=== PATIENT | male | born 1960 | race American Indian/Alaskan Native ===

== ENCOUNTER 2022-08-11 11:00 | Inpatient (IN) | payer OTHER ==
[2022-08-11 11:13] VITALS: BMI 27.3
[2022-08-11 12:38] LABS: BASO % 1.1 % (0-2.0); EOS % 4.1 % (0-4.5); HEMOGLOBIN 12.3 GM/dL (11.7-16.9); LYMPH % 20.8 % (8-40); MCH 25.8 pg (25.7-33.7); MCHC 32.3 g/dl (32.0-35.9); MEAN CELL VOLUME 80.1 fl (80-96); MEAN PLT VOLUME 7.6 fl (7.5-11.1); MONO % 9.2 % (3.8-10.2); NEUT % 64.8 % (42.8-82.8); PLATELET COUNT 401 10^3/uL (134-434); RBC 4.75 M/mm3 (4.00-5.60); RDW 14.3 % (11.9-15.9); WHITE BLOOD COUNT 12.1 K/mm3 (4.0-10.0)
[2022-08-11 12:52] LABS: EPI CELLS 5 /uL (0-25.1); HYALINE CASTS 0 /uL (0-3.1); PH,URINE 7.5 (5.0-8.0); URINE APPEARANCE CLEAR; URINE BILIRUBIN NEGATIVE (NEGATIVE); URINE COLOR DK YELLOW; URINE GLUCOSE (UA) NEGATIVE (NEGATIVE); URINE KETONE NEGATIVE (NEGATIVE); URINE LEUK ESTERASE NEGATIVE (NEGATIVE); URINE NITRITE POSITIVE (NEGATIVE); URINE PROTEIN NEGATIVE (NEGATIVE); URINE RBC 6 /uL (0-23.9); URINE WBC 12 /uL (0-25.8)
[2022-08-11 13:06] LABS: CALCIUM 8.6 mg/dL (8.5-10.1)
[2022-08-11 13:07] LABS: ALBUMIN 2.8 g/dl (3.4-5.0); BLOOD UREA NITROGEN 8.6 mg/dL (7-18)
[2022-08-11 13:11] LABS: URINE BACTERIA 44.7 /uL (0-1359)
[2022-08-11 13:11] LABS: BILIRUBIN,TOTAL 0.5 mg/dL (0.2-1)
[2022-08-11 13:12] LABS: TOT PROT 6.3 g/dl (6.4-8.2)
[2022-08-11 13:15] LABS: N-TERMINAL BNP 64.3 pg/ml (5-125)
[2022-08-11] MEDS ORDERED: LORazepam 2 MG TABLET PO ONE (16:20)
[2022-08-11] MEDS ORDERED: PIPERACILLIN/TAZOB 3.375 GM 3.375 GM in DEXTROSE 5%-WATER - 50 ML IVPB ONE (16:21)
[2022-08-11] MEDS ORDERED: VANCOMYCIN 1 GM in D5W (PRE-DOCKED) 1,000 MG/250 ML (RESTRICTED TO ID ONLY IVPB ONE (16:22)
[2022-08-11] MEDS ORDERED: HALOPERIDOL 5 MG TABLET PO ONE (16:52)
[2022-08-11] MEDS ORDERED: LORazepam 1 MG TABLET ONE (17:13)
[2022-08-11] MEDS ORDERED: PIPERACILLIN/TAZOB 3.375 GM 3.375 GM/50 ML BAG IVPB ONE (17:14)
[2022-08-11] MEDS ORDERED: VANCOMYCIN/WATER FOR INJ (PEG) 1,000 MG/200 ML BAG IVPB ONE (19:09)
[2022-08-11] MEDS ORDERED: FUROSEMIDE 40 MG/4 ML INJECTABLE VIAL IVPUSH ONE (22:12)
[2022-08-12] MEDS: PIPERACILLIN/TAZOB 3.375 GM 3.375 GM in DEXTROSE 5%-WATER - 50 ML IVPB SCH ×4 (02:14→17:07)
[2022-08-12] MEDS: LORazepam 1 MG TABLET PO SCH ×3 (06:08→23:06)
[2022-08-12] MEDS ORDERED: ENOXAPARIN NA (PORCINE) 40 MG/0.4 ML DISP.SYRIN SQ SCH (10:00)
[2022-08-12 10:08] LABS: HEMATOCRIT 37.8 % (35.4-49); HEMOGLOBIN 12.2 GM/dL (11.7-16.9); MCH 25.8 pg (25.7-33.7); MCHC 32.3 g/dl (32.0-35.9); MEAN CELL VOLUME 79.8 fl (80-96); PLATELET COUNT 411 10^3/uL (134-434); RBC 4.73 M/mm3 (4.00-5.60); RDW 14.7 % (11.9-15.9); WHITE BLOOD COUNT 11.9 K/mm3 (4.0-10.0)
[2022-08-12 10:25] LABS: POTASSIUM 4.1 mmol/L (3.5-5.1)
[2022-08-12 10:32] LABS: CALCIUM 8.6 mg/dL (8.5-10.1)
[2022-08-12 10:33] LABS: BLOOD UREA NITROGEN 9.2 mg/dL (7-18); MAGNESIUM 1.7 mg/dL (1.8-2.4)
[2022-08-12 10:36] LABS: PHOSPHOROUS 3.8 mg/dL (2.5-4.9)
[2022-08-12 10:37] LABS: BILIRUBIN,TOTAL 0.5 mg/dL (0.2-1)
[2022-08-12] MEDS: BENZTROPINE MESYLATE 1 MG TABLET PO SCH ×2 (11:05→23:07)
[2022-08-12] MEDS: HALOPERIDOL 5 MG TABLET PO SCH ×2 (11:05→23:07)
[2022-08-12] MEDS: NAPROXEN 500 MG TABLET PO SCH ×2 (11:06→23:07)
[2022-08-12] MEDS ORDERED: methylPREDNISolone ACET (DEPO) 40 MG/1 ML VIAL IM ONE (12:15)
[2022-08-12] MEDS ORDERED: LIDOCAINE HCL 1%, 10 MG/ML (50 mL VIAL) SQ ONE (12:16)
[2022-08-12 13:06] LABS: HIV INTERPRETATION NEGATIVE (NEGATIVE)
[2022-08-12] MEDS ORDERED: traZODone HCL 50 MG TABLET (FP) PO SCH (22:00)
[2022-08-13] MEDS: PIPERACILLIN/TAZOB 3.375 GM 3.375 GM in DEXTROSE 5%-WATER - 50 ML IVPB SCH ×3 (01:43→21:40)
[2022-08-13] MEDS: LORazepam 1 MG TABLET PO SCH ×3 (06:03→21:36)
[2022-08-13] MEDS ORDERED: TAMSULOSIN HCL 0.4 MG CAP PO SCH (08:30)
[2022-08-13] MEDS ORDERED: MIDAZOLAM HCL 2 MG/2 ML SINGLE DOSE VIAL ONE (09:53)
[2022-08-13] MEDS ORDERED: ENOXAPARIN NA (PORCINE) 40 MG/0.4 ML DISP.SYRIN SQ SCH (10:00)
[2022-08-13] MEDS ORDERED: ceFAZolin SODIUM 1 GM VIAL IVPB ONE (10:20)
[2022-08-13] MEDS ORDERED: LIDOCAINE HCL 1%, 10 MG/ML (50 mL VIAL) INF ONE ×2 (10:58)
[2022-08-13] MEDS ORDERED: BUPIVACAINE HCL/PF 0.5% (5MG/ML) 10 ML VIAL IJ ONE ×2 (10:58)
[2022-08-13] MEDS ORDERED: ONDANSETRON 4 MG/2 ML VIAL IVPUSH PRN ×2 (11:29→11:54)
[2022-08-13] MEDS ORDERED: LACTATED RINGERS SOLUTION 1,000 ML IV SCH (11:30)
[2022-08-13] MEDS ORDERED: LIDOCAINE HCL 2% JELLY 10 ML CARTRIDGE UR ONE (11:47)
[2022-08-13] MEDS ORDERED: oxyCODONE HCL 5 MG TABLET PO PRN (11:54)
[2022-08-13] MEDS ORDERED: MAGNESIUM OXIDE 400 MG TABLET (FP) PO ONE ×2 (12:00→15:45)
[2022-08-13] MEDS: LACTATED RINGERS SOLUTION 1,000 ML IV SCH (12:25)
[2022-08-13] MEDS: BENZTROPINE MESYLATE 1 MG TABLET PO SCH ×2 (14:09→21:38)
[2022-08-13] MEDS: HALOPERIDOL 5 MG TABLET PO SCH ×2 (14:10→21:37)
[2022-08-13] MEDS: NAPROXEN 500 MG TABLET PO SCH (14:11)
[2022-08-13] MEDS: ACETAMINOPHEN 1000 MG/100 ML BAG IVPB SCH ×2 (18:01→23:54)
[2022-08-13 18:07] LABS: CYCLIC CITRULLINE PEPTIDE AB 5 units (0-19)
[2022-08-13] MEDS: traZODone HCL 50 MG TABLET (FP) PO SCH (21:35)
[2022-08-13] MEDS: TAMSULOSIN HCL 0.4 MG CAP PO SCH (21:35)
[2022-08-14] MEDS: PIPERACILLIN/TAZOB 3.375 GM 3.375 GM in DEXTROSE 5%-WATER - 50 ML IVPB SCH ×4 (02:57→17:19)
[2022-08-14] MEDS: ACETAMINOPHEN 1000 MG/100 ML BAG IVPB SCH (06:27)
[2022-08-14] MEDS: LORazepam 1 MG TABLET PO SCH ×3 (06:28→21:49)
[2022-08-14] MEDS: LACTATED RINGERS SOLUTION 1,000 ML IV SCH ×2 (06:59→14:37)
[2022-08-14 09:30] LABS: BASO % 0.9 % (0-2.0); EOS % 5.7 % (0-4.5); HEMATOCRIT 36.3 % (35.4-49); HEMOGLOBIN 12.2 GM/dL (11.7-16.9); LYMPH % 20.2 % (8-40); MCH 26.5 pg (25.7-33.7); MCHC 33.7 g/dl (32.0-35.9); MEAN CELL VOLUME 78.7 fl (80-96); MEAN PLT VOLUME 7.3 fl (7.5-11.1); MONO % 9.9 % (3.8-10.2); NEUT % 63.3 % (42.8-82.8); PLATELET COUNT 383 10^3/uL (134-434); RBC 4.62 M/mm3 (4.00-5.60); WHITE BLOOD COUNT 10.8 K/mm3 (4.0-10.0)
[2022-08-14 09:45] LABS: POTASSIUM 4.5 mmol/L (3.5-5.1)
[2022-08-14 09:49] LABS: CALCIUM 8.3 mg/dL (8.5-10.1)
[2022-08-14 09:50] LABS: ALBUMIN 2.7 g/dl (3.4-5.0)
[2022-08-14 09:53] LABS: CREATININE 1.1 mg/dL (0.55-1.3)
[2022-08-14 09:55] LABS: BILIRUBIN,TOTAL 0.4 mg/dL (0.2-1); TOT PROT 5.5 g/dl (6.4-8.2)
[2022-08-14] MEDS: HALOPERIDOL 5 MG TABLET PO SCH ×2 (10:19→21:54)
[2022-08-14] MEDS: ENOXAPARIN NA (PORCINE) 40 MG/0.4 ML DISP.SYRIN SQ SCH (10:19)
[2022-08-14] MEDS: BENZTROPINE MESYLATE 1 MG TABLET PO SCH ×2 (10:20→21:52)
[2022-08-14] MEDS: TAMSULOSIN HCL 0.4 MG CAP PO SCH ×2 (10:20→21:53)
[2022-08-14 10:32] LABS: MAGNESIUM 2.1 mg/dL (1.8-2.4)
[2022-08-14] MEDS: PANTOPRAZOLE 40 MG TABLET PO SCH (15:30)
[2022-08-14] MEDS: ACETAMINOPHEN 325 MG TABLET (FP) PO PRN (17:18)
[2022-08-14] MEDS: traZODone HCL 50 MG TABLET (FP) PO SCH (21:53)
[2022-08-15] MEDS: AMPICILLIN NA/SULBACTAM NA 3 GM in SODIUM CHLORIDE 100 ML IVPB SCH ×3 (01:52→17:24)
[2022-08-15] MEDS: LACTATED RINGERS SOLUTION 1,000 ML IV SCH ×2 (01:53→11:44)
[2022-08-15] MEDS: LORazepam 1 MG TABLET PO SCH ×3 (05:28→23:01)
[2022-08-15 07:34] LABS: BASO % 0.8 % (0-2.0); EOS % 4.4 % (0-4.5); HEMATOCRIT 36.5 % (35.4-49); HEMOGLOBIN 11.6 GM/dL (11.7-16.9); LYMPH % 14.7 % (8-40); MCH 25.5 pg (25.7-33.7); MCHC 31.9 g/dl (32.0-35.9); MEAN CELL VOLUME 79.9 fl (80-96); MEAN PLT VOLUME 7.7 fl (7.5-11.1); MONO % 9.3 % (3.8-10.2); NEUT % 70.8 % (42.8-82.8); PLATELET COUNT 381 10^3/uL (134-434); RBC 4.57 M/mm3 (4.00-5.60); RDW 14.5 % (11.9-15.9)
[2022-08-15 07:47] LABS: POTASSIUM 4.3 mmol/L (3.5-5.1)
[2022-08-15 07:49] LABS: CALCIUM 8.3 mg/dL (8.5-10.1)
[2022-08-15 07:50] LABS: ALBUMIN 2.5 g/dl (3.4-5.0); BLOOD UREA NITROGEN 9.3 mg/dL (7-18); MAGNESIUM 1.8 mg/dL (1.8-2.4)
[2022-08-15 07:53] LABS: CREATININE 0.9 mg/dL (0.55-1.3)
[2022-08-15 07:55] LABS: BILIRUBIN,TOTAL 0.3 mg/dL (0.2-1); TOT PROT 5.4 g/dl (6.4-8.2)
[2022-08-15] MEDS: HALOPERIDOL 5 MG TABLET PO SCH ×2 (10:06→23:04)
[2022-08-15] MEDS: TAMSULOSIN HCL 0.4 MG CAP PO SCH ×2 (10:06→23:02)
[2022-08-15] MEDS: BENZTROPINE MESYLATE 1 MG TABLET PO SCH ×2 (10:07→23:03)
[2022-08-15] MEDS: ENOXAPARIN NA (PORCINE) 40 MG/0.4 ML DISP.SYRIN SQ SCH (10:07)
[2022-08-15] MEDS: PANTOPRAZOLE 40 MG TABLET PO SCH (10:08)
[2022-08-15] MEDS: LOPERAMIDE HCL 2 MG CAPSULE PO PRN (10:28)
[2022-08-15] MEDS: LACTOBACILLUS ACIDOPHILUS 1 TABLET PO SCH (13:47)
[2022-08-15] MEDS: traZODone HCL 50 MG TABLET (FP) PO SCH (23:01)
[2022-08-16] MEDS: AMPICILLIN NA/SULBACTAM NA 3 GM in SODIUM CHLORIDE 100 ML IVPB SCH ×3 (02:22→17:34)
[2022-08-16] MEDS: LORazepam 1 MG TABLET PO SCH ×3 (07:05→22:28)
[2022-08-16 08:44] LABS: EOS % 4.7 % (0-4.5); HEMATOCRIT 37.2 % (35.4-49); LYMPH % 22.6 % (8-40); MCH 25.9 pg (25.7-33.7); MCHC 32.3 g/dl (32.0-35.9); MEAN CELL VOLUME 80.2 fl (80-96); MEAN PLT VOLUME 7.6 fl (7.5-11.1); MONO % 8.5 % (3.8-10.2); NEUT % 63.2 % (42.8-82.8); PLATELET COUNT 399 10^3/uL (134-434); RBC 4.64 M/mm3 (4.00-5.60); RDW 14.6 % (11.9-15.9); WHITE BLOOD COUNT 12.7 K/mm3 (4.0-10.0)
[2022-08-16 09:07] LABS: POTASSIUM 4.7 mmol/L (3.5-5.1)
[2022-08-16 09:10] LABS: BLOOD UREA NITROGEN 9.5 mg/dL (7-18)
[2022-08-16 09:11] LABS: ALBUMIN 2.8 g/dl (3.4-5.0); MAGNESIUM 1.7 mg/dL (1.8-2.4)
[2022-08-16 09:13] LABS: CREATININE 0.8 mg/dL (0.55-1.3)
[2022-08-16 09:14] LABS: BILIRUBIN,TOTAL 0.7 mg/dL (0.2-1)
[2022-08-16 09:16] LABS: TOT PROT 5.9 g/dl (6.4-8.2)
[2022-08-16] MEDS: PANTOPRAZOLE 40 MG TABLET PO SCH (09:17)
[2022-08-16] MEDS: TAMSULOSIN HCL 0.4 MG CAP PO SCH ×2 (09:18→22:29)
[2022-08-16] MEDS: HALOPERIDOL 5 MG TABLET PO SCH ×2 (09:18→22:29)
[2022-08-16] MEDS: ENOXAPARIN NA (PORCINE) 40 MG/0.4 ML DISP.SYRIN SQ SCH (09:19)
[2022-08-16] MEDS: BENZTROPINE MESYLATE 1 MG TABLET PO SCH ×2 (09:19→22:29)
[2022-08-16] MEDS: LACTATED RINGERS SOLUTION 1,000 ML IV SCH (09:23)
[2022-08-16] MEDS: LACTOBACILLUS ACIDOPHILUS 1 TABLET PO SCH (09:48)
[2022-08-16] MEDS ORDERED: MAGNESIUM OXIDE 400 MG TABLET (FP) PO ONE (10:38)
[2022-08-16] MEDS: ACETAMINOPHEN 325 MG TABLET (FP) PO PRN (13:10)
[2022-08-16] MEDS ORDERED: INSULIN SLIDING SCALE (NOVOLOG) 1 VIAL SQ SCH (17:45)
[2022-08-16] MEDS: traZODone HCL 50 MG TABLET (FP) PO SCH (22:29)
[2022-08-16] MEDS ORDERED: INSULIN (NOVOLOG) ASPART 100 UNITS/ML 10ML VIAL ONE (22:35)
[2022-08-16] MEDS: INSULIN SLIDING SCALE (NOVOLOG) 1 VIAL SQ SCH (22:37)
[2022-08-17] MEDS ORDERED: FAMOTIDINE 20 MG/50 ML IVPB 20 MG/50 ML MG IVPB ONE (01:14)
[2022-08-17] MEDS: AMPICILLIN NA/SULBACTAM NA 3 GM in SODIUM CHLORIDE 100 ML IVPB SCH ×3 (02:30→17:29)
[2022-08-17] MEDS: LACTATED RINGERS SOLUTION 1,000 ML IV SCH ×2 (06:57→12:00)
[2022-08-17] MEDS: LORazepam 1 MG TABLET PO SCH ×3 (06:58→22:03)
[2022-08-17] MEDS: INSULIN SLIDING SCALE (NOVOLOG) 1 VIAL SQ SCH ×4 (06:59→22:16)
[2022-08-17 09:08] LABS: BASO % 0.6 % (0-2.0); EOS % 5.8 % (0-4.5); HEMOGLOBIN 11.6 GM/dL (11.7-16.9); LYMPH % 15.9 % (8-40); MCH 26.1 pg (25.7-33.7); MCHC 33.3 g/dl (32.0-35.9); MEAN CELL VOLUME 78.4 fl (80-96); MEAN PLT VOLUME 7.4 fl (7.5-11.1); MONO % 8.7 % (3.8-10.2); PLATELET COUNT 383 10^3/uL (134-434); RBC 4.46 M/mm3 (4.00-5.60); RDW 14.6 % (11.9-15.9); WHITE BLOOD COUNT 11.6 K/mm3 (4.0-10.0)
[2022-08-17 09:18] LABS: POTASSIUM 4.4 mmol/L (3.5-5.1)
[2022-08-17 09:25] LABS: CALCIUM 8.5 mg/dL (8.5-10.1)
[2022-08-17 09:26] LABS: ALBUMIN 2.4 g/dl (3.4-5.0); BLOOD UREA NITROGEN 9.8 mg/dL (7-18); MAGNESIUM 1.7 mg/dL (1.8-2.4)
[2022-08-17 09:29] LABS: CREATININE 0.8 mg/dL (0.55-1.3)
[2022-08-17 09:30] LABS: BILIRUBIN,TOTAL 0.4 mg/dL (0.2-1)
[2022-08-17 09:32] LABS: TOT PROT 5.4 g/dl (6.4-8.2)
[2022-08-17] MEDS: LACTOBACILLUS ACIDOPHILUS 1 TABLET PO SCH (10:16)
[2022-08-17] MEDS: ENOXAPARIN NA (PORCINE) 40 MG/0.4 ML DISP.SYRIN SQ SCH (10:16)
[2022-08-17] MEDS: TAMSULOSIN HCL 0.4 MG CAP PO SCH ×2 (10:16→22:04)
[2022-08-17] MEDS: HALOPERIDOL 5 MG TABLET PO SCH ×2 (10:17→22:06)
[2022-08-17] MEDS: BENZTROPINE MESYLATE 1 MG TABLET PO SCH ×2 (10:17→22:49)
[2022-08-17] MEDS: PANTOPRAZOLE 40 MG TABLET PO SCH (10:30)
[2022-08-17] MEDS ORDERED: INSULIN (NOVOLOG) ASPART 100 UNITS/ML 10ML VIAL ONE ×2 (11:33→16:37)
[2022-08-17 16:09] LABS: ATYPICAL pANCA <1:20 titer (Neg:<1:20); C-ANCA <1:20 titer (Neg:<1:20)
[2022-08-17] MEDS: traZODone HCL 50 MG TABLET (FP) PO SCH (22:04)
[2022-08-18] MEDS: AMPICILLIN NA/SULBACTAM NA 3 GM in SODIUM CHLORIDE 100 ML IVPB SCH ×3 (03:23→17:23)
[2022-08-18] MEDS: LORazepam 1 MG TABLET PO SCH ×3 (06:07→21:18)
[2022-08-18] MEDS: INSULIN SLIDING SCALE (NOVOLOG) 1 VIAL SQ SCH ×4 (06:08→21:35)
[2022-08-18] MEDS: TAMSULOSIN HCL 0.4 MG CAP PO SCH ×2 (08:00→21:18)
[2022-08-18] MEDS ORDERED: INSULIN (NOVOLOG) ASPART 100 UNITS/ML 10ML VIAL ONE ×4 (08:02→21:27)
[2022-08-18 09:32] LABS: BASO % 0.9 % (0-2.0); HEMATOCRIT 36.1 % (35.4-49); HEMOGLOBIN 11.5 GM/dL (11.7-16.9); LYMPH % 19.7 % (8-40); MCH 25.5 pg (25.7-33.7); MCHC 31.9 g/dl (32.0-35.9); MEAN CELL VOLUME 79.9 fl (80-96); MEAN PLT VOLUME 7.8 fl (7.5-11.1); NEUT % 66.4 % (42.8-82.8); PLATELET COUNT 415 10^3/uL (134-434); RBC 4.52 M/mm3 (4.00-5.60); RDW 14.4 % (11.9-15.9); WHITE BLOOD COUNT 11.2 K/mm3 (4.0-10.0)
[2022-08-18 09:52] LABS: POTASSIUM 4.3 mmol/L (3.5-5.1)
[2022-08-18 10:00] LABS: CALCIUM 8.6 mg/dL (8.5-10.1)
[2022-08-18 10:01] LABS: ALBUMIN 2.6 g/dl (3.4-5.0); BLOOD UREA NITROGEN 9.2 mg/dL (7-18); MAGNESIUM 1.7 mg/dL (1.8-2.4)
[2022-08-18 10:04] LABS: CREATININE 0.7 mg/dL (0.55-1.3)
[2022-08-18 10:05] LABS: BILIRUBIN,TOTAL 0.4 mg/dL (0.2-1); TOT PROT 5.8 g/dl (6.4-8.2)
[2022-08-18] MEDS: PANTOPRAZOLE 40 MG TABLET PO SCH (10:05)
[2022-08-18] MEDS: LACTOBACILLUS ACIDOPHILUS 1 TABLET PO SCH (10:05)
[2022-08-18] MEDS: HALOPERIDOL 5 MG TABLET PO SCH ×2 (10:05→21:18)
[2022-08-18] MEDS: BENZTROPINE MESYLATE 1 MG TABLET PO SCH ×2 (10:06→21:18)
[2022-08-18] MEDS: ENOXAPARIN NA (PORCINE) 40 MG/0.4 ML DISP.SYRIN SQ SCH (10:06)
[2022-08-18] MEDS ORDERED: MAGNESIUM OXIDE 400 MG TABLET (FP) PO ONE (11:10)
[2022-08-18] MEDS: metoPROLOL SUCCINATE 25 MG TAB.SR.24H (FP) PO SCH (11:43)
[2022-08-18] MEDS: LACTATED RINGERS SOLUTION 1,000 ML IV SCH (15:43)
[2022-08-18] MEDS: traZODone HCL 50 MG TABLET (FP) PO SCH (21:18)
[2022-08-19] MEDS: AMPICILLIN NA/SULBACTAM NA 3 GM in SODIUM CHLORIDE 100 ML IVPB SCH ×3 (01:21→17:22)
[2022-08-19] MEDS: LORazepam 1 MG TABLET PO SCH ×3 (05:22→21:37)
[2022-08-19] MEDS: INSULIN SLIDING SCALE (NOVOLOG) 1 VIAL SQ SCH ×4 (06:14→22:56)
[2022-08-19 08:54] LABS: BASO % 0.8 % (0-2.0); EOS % 4.4 % (0-4.5); HEMATOCRIT 36.2 % (35.4-49); HEMOGLOBIN 11.4 GM/dL (11.7-16.9); LYMPH % 20.5 % (8-40); MCH 25.2 pg (25.7-33.7); MCHC 31.6 g/dl (32.0-35.9); MEAN CELL VOLUME 79.7 fl (80-96); MEAN PLT VOLUME 7.8 fl (7.5-11.1); MONO % 9.9 % (3.8-10.2); NEUT % 64.4 % (42.8-82.8); PLATELET COUNT 421 10^3/uL (134-434); RBC 4.54 M/mm3 (4.00-5.60); RDW 14.3 % (11.9-15.9); WHITE BLOOD COUNT 11.9 K/mm3 (4.0-10.0)
[2022-08-19 09:12] LABS: POTASSIUM 4.4 mmol/L (3.5-5.1)
[2022-08-19 09:15] LABS: BLOOD UREA NITROGEN 10.9 mg/dL (7-18); CALCIUM 8.9 mg/dL (8.5-10.1); MAGNESIUM 1.9 mg/dL (1.8-2.4)
[2022-08-19 09:17] LABS: ALBUMIN 2.7 g/dl (3.4-5.0)
[2022-08-19 09:18] LABS: CREATININE 0.8 mg/dL (0.55-1.3)
[2022-08-19 09:20] LABS: BILIRUBIN,TOTAL 0.5 mg/dL (0.2-1); TOT PROT 5.8 g/dl (6.4-8.2)
[2022-08-19] MEDS: metoPROLOL SUCCINATE 25 MG TAB.SR.24H (FP) PO SCH (09:28)
[2022-08-19] MEDS: PANTOPRAZOLE 40 MG TABLET PO SCH (09:28)
[2022-08-19] MEDS: LACTOBACILLUS ACIDOPHILUS 1 TABLET PO SCH (09:28)
[2022-08-19] MEDS: TAMSULOSIN HCL 0.4 MG CAP PO SCH ×2 (09:28→21:37)
[2022-08-19] MEDS: ENOXAPARIN NA (PORCINE) 40 MG/0.4 ML DISP.SYRIN SQ SCH (09:29)
[2022-08-19] MEDS: HALOPERIDOL 5 MG TABLET PO SCH ×2 (09:29→22:49)
[2022-08-19] MEDS: BENZTROPINE MESYLATE 1 MG TABLET PO SCH ×2 (09:29→21:37)
[2022-08-19] MEDS ORDERED: INSULIN (NOVOLOG) ASPART 100 UNITS/ML 10ML VIAL ONE (11:43)
[2022-08-19] MEDS: LACTATED RINGERS SOLUTION 1,000 ML IV SCH ×2 (13:15→17:22)
[2022-08-19] MEDS: ACETAMINOPHEN 325 MG TABLET (FP) PO PRN (17:23)
[2022-08-19] MEDS: traZODone HCL 50 MG TABLET (FP) PO SCH (21:37)
[2022-08-20] MEDS: AMPICILLIN NA/SULBACTAM NA 3 GM in SODIUM CHLORIDE 100 ML IVPB SCH ×3 (01:32→18:27)
[2022-08-20] MEDS: LORazepam 1 MG TABLET PO SCH ×3 (05:32→21:32)
[2022-08-20] MEDS ORDERED: INSULIN (NOVOLOG) ASPART 100 UNITS/ML 10ML VIAL ONE ×2 (06:30→22:19)
[2022-08-20] MEDS: INSULIN SLIDING SCALE (NOVOLOG) 1 VIAL SQ SCH ×5 (06:44→22:20)
[2022-08-20 08:44] LABS: EOS % 5.1 % (0-4.5); HEMATOCRIT 35.6 % (35.4-49); HEMOGLOBIN 11.4 GM/dL (11.7-16.9); LYMPH % 15.9 % (8-40); MCH 25.6 pg (25.7-33.7); MEAN CELL VOLUME 80.1 fl (80-96); MONO % 9.8 % (3.8-10.2); NEUT % 68.2 % (42.8-82.8); PLATELET COUNT 419 10^3/uL (134-434); RBC 4.44 M/mm3 (4.00-5.60); RDW 14.3 % (11.9-15.9); WHITE BLOOD COUNT 11.3 K/mm3 (4.0-10.0)
[2022-08-20 08:58] LABS: POTASSIUM 4.4 mmol/L (3.5-5.1)
[2022-08-20 09:01] LABS: ALBUMIN 2.5 g/dl (3.4-5.0); BLOOD UREA NITROGEN 10.6 mg/dL (7-18); CALCIUM 8.5 mg/dL (8.5-10.1); MAGNESIUM 1.8 mg/dL (1.8-2.4)
[2022-08-20 09:04] LABS: CREATININE 0.7 mg/dL (0.55-1.3)
[2022-08-20 09:06] LABS: BILIRUBIN,TOTAL 0.3 mg/dL (0.2-1); TOT PROT 5.6 g/dl (6.4-8.2)
[2022-08-20] MEDS: PANTOPRAZOLE 40 MG TABLET PO SCH (09:20)
[2022-08-20] MEDS: LACTOBACILLUS ACIDOPHILUS 1 TABLET PO SCH (09:20)
[2022-08-20] MEDS: metoPROLOL SUCCINATE 25 MG TAB.SR.24H (FP) PO SCH (09:20)
[2022-08-20] MEDS: TAMSULOSIN HCL 0.4 MG CAP PO SCH ×2 (09:21→21:32)
[2022-08-20] MEDS: BENZTROPINE MESYLATE 1 MG TABLET PO SCH ×2 (09:22→21:33)
[2022-08-20] MEDS: HALOPERIDOL 5 MG TABLET PO SCH ×2 (09:22→21:33)
[2022-08-20] MEDS: ENOXAPARIN NA (PORCINE) 40 MG/0.4 ML DISP.SYRIN SQ SCH (09:23)
[2022-08-20] MEDS: ACETAMINOPHEN 325 MG TABLET (FP) PO PRN (10:24)
[2022-08-20] MEDS: traZODone HCL 50 MG TABLET (FP) PO SCH (21:32)
[2022-08-21] MEDS: AMPICILLIN NA/SULBACTAM NA 3 GM in SODIUM CHLORIDE 100 ML IVPB SCH ×2 (01:26→09:10)
[2022-08-21] MEDS: LORazepam 1 MG TABLET PO SCH ×3 (06:37→22:25)
[2022-08-21] MEDS: INSULIN SLIDING SCALE (NOVOLOG) 1 VIAL SQ SCH ×4 (06:48→22:24)
[2022-08-21 08:33] LABS: POTASSIUM 4.8 mmol/L (3.5-5.1)
[2022-08-21 08:37] LABS: ALBUMIN 2.7 g/dl (3.4-5.0); BLOOD UREA NITROGEN 10.4 mg/dL (7-18); CALCIUM 8.8 mg/dL (8.5-10.1)
[2022-08-21 08:40] LABS: CREATININE 0.8 mg/dL (0.55-1.3)
[2022-08-21 08:41] LABS: BILIRUBIN,TOTAL 0.7 mg/dL (0.2-1)
[2022-08-21 08:43] LABS: EOS % 5.4 % (0-4.5); HEMOGLOBIN 11.8 GM/dL (11.7-16.9); LYMPH % 20.7 % (8-40); MCH 24.9 pg (25.7-33.7); MCHC 31.8 g/dl (32.0-35.9); MEAN CELL VOLUME 78.1 fl (80-96); MEAN PLT VOLUME 7.8 fl (7.5-11.1); MONO % 8.8 % (3.8-10.2); NEUT % 64.1 % (42.8-82.8); PLATELET COUNT 441 10^3/uL (134-434); RBC 4.74 M/mm3 (4.00-5.60); RDW 14.7 % (11.9-15.9); WHITE BLOOD COUNT 12.6 K/mm3 (4.0-10.0)
[2022-08-21] MEDS: TAMSULOSIN HCL 0.4 MG CAP PO SCH ×2 (08:55→22:26)
[2022-08-21] MEDS: metoPROLOL SUCCINATE 25 MG TAB.SR.24H (FP) PO SCH (09:09)
[2022-08-21] MEDS: ENOXAPARIN NA (PORCINE) 40 MG/0.4 ML DISP.SYRIN SQ SCH (09:09)
[2022-08-21] MEDS: LACTOBACILLUS ACIDOPHILUS 1 TABLET PO SCH (09:09)
[2022-08-21] MEDS: PANTOPRAZOLE 40 MG TABLET PO SCH (09:10)
[2022-08-21] MEDS: HALOPERIDOL 5 MG TABLET PO SCH ×2 (09:13→22:25)
[2022-08-21] MEDS: BENZTROPINE MESYLATE 1 MG TABLET PO SCH ×2 (09:14→22:26)
[2022-08-21] MEDS ORDERED: INSULIN (NOVOLOG) ASPART 100 UNITS/ML 10ML VIAL ONE ×2 (12:02→17:10)
[2022-08-21] MEDS: AMOX TR/POT CLAV 875MG/125MG TABLETS (FP) PO SCH (17:58)
[2022-08-21] MEDS: traZODone HCL 50 MG TABLET (FP) PO SCH (22:26)
[2022-08-22] MEDS: LORazepam 1 MG TABLET PO SCH ×3 (05:57→21:15)
[2022-08-22] MEDS: INSULIN SLIDING SCALE (NOVOLOG) 1 VIAL SQ SCH ×4 (06:04→22:06)
[2022-08-22 08:50] LABS: BASO % 0.8 % (0-2.0); EOS % 4.5 % (0-4.5); HEMATOCRIT 36.8 % (35.4-49); HEMOGLOBIN 11.7 GM/dL (11.7-16.9); LYMPH % 16.8 % (8-40); MCH 24.9 pg (25.7-33.7); MCHC 31.8 g/dl (32.0-35.9); MEAN CELL VOLUME 78.3 fl (80-96); MEAN PLT VOLUME 7.5 fl (7.5-11.1); NEUT % 66.9 % (42.8-82.8); PLATELET COUNT 445 10^3/uL (134-434); RBC 4.69 M/mm3 (4.00-5.60); RDW 14.5 % (11.9-15.9)
[2022-08-22] MEDS: LACTOBACILLUS ACIDOPHILUS 1 TABLET PO SCH (09:14)
[2022-08-22] MEDS: AMOX TR/POT CLAV 875MG/125MG TABLETS (FP) PO SCH ×2 (09:14→16:54)
[2022-08-22] MEDS: PANTOPRAZOLE 40 MG TABLET PO SCH (09:14)
[2022-08-22] MEDS: ENOXAPARIN NA (PORCINE) 40 MG/0.4 ML DISP.SYRIN SQ SCH (09:14)
[2022-08-22] MEDS: metoPROLOL SUCCINATE 25 MG TAB.SR.24H (FP) PO SCH (09:14)
[2022-08-22] MEDS: TAMSULOSIN HCL 0.4 MG CAP PO SCH ×2 (09:14→21:15)
[2022-08-22] MEDS: BENZTROPINE MESYLATE 1 MG TABLET PO SCH ×2 (09:16→21:15)
[2022-08-22] MEDS: HALOPERIDOL 5 MG TABLET PO SCH ×2 (09:16→21:15)
[2022-08-22 09:26] VITALS: RESP 18
[2022-08-22] MEDS: ACETAMINOPHEN 325 MG TABLET (FP) PO PRN (11:41)
[2022-08-22] MEDS: LOPERAMIDE HCL 2 MG CAPSULE PO PRN (18:58)
[2022-08-22] MEDS: traZODone HCL 50 MG TABLET (FP) PO SCH (21:15)
[2022-08-22] MEDS ORDERED: INSULIN (NOVOLOG) ASPART 100 UNITS/ML 10ML VIAL ONE (22:00)
[2022-08-23] MEDS: LORazepam 1 MG TABLET PO SCH ×2 (06:32→14:52)
[2022-08-23] MEDS ORDERED: INSULIN (NOVOLOG) ASPART 100 UNITS/ML 10ML VIAL ONE (06:51)
[2022-08-23] MEDS: INSULIN SLIDING SCALE (NOVOLOG) 1 VIAL SQ SCH ×2 (06:53→12:51)
[2022-08-23] MEDS: ENOXAPARIN NA (PORCINE) 40 MG/0.4 ML DISP.SYRIN SQ SCH (09:14)
[2022-08-23] MEDS: metoPROLOL SUCCINATE 25 MG TAB.SR.24H (FP) PO SCH (09:14)
[2022-08-23] MEDS: AMOX TR/POT CLAV 875MG/125MG TABLETS (FP) PO SCH (09:14)
[2022-08-23] MEDS: TAMSULOSIN HCL 0.4 MG CAP PO SCH (09:14)
[2022-08-23] MEDS: LACTOBACILLUS ACIDOPHILUS 1 TABLET PO SCH (09:14)
[2022-08-23] MEDS: HALOPERIDOL 5 MG TABLET PO SCH (09:15)
[2022-08-23] MEDS: BENZTROPINE MESYLATE 1 MG TABLET PO SCH (09:15)
[2022-08-23] MEDS: PANTOPRAZOLE 40 MG TABLET PO SCH (09:16)
[2022-08-23 15:48] VITALS: BP 130/57; PULSE 114; TEMP 98.7
== END 2022-08-23 16:30 | disposition home or self-care (01) | DRG 681 ==
LOC: JER 11:00 → JERBED 19:27 → J8W 21:55
PROVIDERS: ADMIT Internal Medicine; ATTEND Nurse Practitioner Family
PROC: 0T9B70Z Drainage of Bladder with Drainage Device, Via Natural or Artificial Opening (ICD-10-PCS; 2022-08-13)
PROC: 07BH0ZZ Excision of Right Inguinal Lymphatic, Open Approach (ICD-10-PCS; principal; 2022-08-13 09:30)
DX: C83.15 Mantle cell lymphoma, lymph nodes of inguinal region and lower limb (principal); R59.1 Generalized enlarged lymph nodes; E11.9 Type 2 diabetes mellitus without complications; F25.8 Other schizoaffective disorders; M25.562 Pain in left knee; N49.2 Inflammatory disorders of scrotum; N43.2 Other hydrocele; N47.1 Phimosis; R33.9 Retention of urine, unspecified; R19.7 Diarrhea, unspecified; J90 Pleural effusion, not elsewhere classified; J98.11 Atelectasis; I10 Essential (primary) hypertension; D47.Z9 Other specified neoplasms of uncertain behavior of lymphoid, hematopoietic and related tissue
CPT/HCPCS: 36415; 70491-TC; 71045-TC-FY; 71260-TC; 72193-TC; 73564-TC-LT-FY; 74177-TC; 76870-TC; 80053; 81003; 82105; 82378; 82784; 82962; 83036; 83520; 83605; 83615; 83735; 83880; 84100; 84153; 84550; 84702; 85025; 85027; 85651; 86038; 86140; 86200; 86256; 86301; 86431; 86618; 86850; 86900; 86901; 87040; 87077; 87081; 87086; 87186; 87389; 87491; 87591; 87661; 88307-TC; 93005; 93010; 93306-TC; 93970-TC; 93971-TC; 94760; 97116-GP; 97161-GP; 99285-25; Q9967

== ENCOUNTER 2023-03-28 15:53 | Emergency (ER) | payer OTHER ==
[2023-03-28 16:36] VITALS: RESP 18; BMI 30.4
[2023-03-28 17:07] LABS: HEMATOCRIT 34.4 % (35.4-49); HEMOGLOBIN 11.5 GM/dL (11.7-16.9); MCH 26.8 pg (25.7-33.7); MCHC 33.3 g/dl (32.0-35.9); MEAN CELL VOLUME 80.4 fl (80-96); MEAN PLT VOLUME 6.5 fl (7.5-11.1); PLATELET COUNT 317 10^3/uL (134-434); RBC 4.28 M/mm3 (4.00-5.60); RDW 21.3 % (11.9-15.9); WHITE BLOOD COUNT 5.5 K/mm3 (4.0-10.0)
[2023-03-28 17:32] LABS: POTASSIUM 3.9 mmol/L (3.5-5.1)
[2023-03-28 17:33] LABS: CALCIUM 8.5 mg/dL (8.5-10.1)
[2023-03-28 17:34] LABS: ALBUMIN 3.6 g/dl (3.4-5.0); BLOOD UREA NITROGEN 13.2 mg/dL (7-18)
[2023-03-28 17:38] LABS: CREATININE 1.1 mg/dL (0.55-1.3)
[2023-03-28 17:39] LABS: BILIRUBIN,TOTAL 0.2 mg/dL (0.2-1)
[2023-03-28 17:40] LABS: TOT PROT 6.4 g/dl (6.4-8.2)
[2023-03-28 17:43] LABS: N-TERMINAL BNP 64.5 pg/ml (5-125)
[2023-03-28 18:17] LABS: ANISOCYTOSIS 1+; MACROCYTOSIS 0; PLATELET ESTIMATE NORMAL
[2023-03-28] MEDS ORDERED: LORazepam 1 MG TABLET PO ONE (18:25)
[2023-03-28 18:46] LABS: URINE APPEARANCE CLEAR; URINE BILIRUBIN NEGATIVE (NEGATIVE); URINE COLOR YELLOW; URINE GLUCOSE (UA) NEGATIVE (NEGATIVE); URINE KETONE NEGATIVE (NEGATIVE); URINE LEUK ESTERASE NEGATIVE (NEGATIVE); URINE NITRITE NEGATIVE (NEGATIVE); URINE PROTEIN NEGATIVE (NEGATIVE); URINE UROBILINOGEN 0.2 mg/dL (0.2-1.0)
[2023-03-28] MEDS ORDERED: LORazepam 1 MG TABLET ONE (19:02)
[2023-03-28] MEDS ORDERED: ACETAMINOPHEN 1000 MG/100 ML BAG IVPB ONE (20:43)
[2023-03-28] MEDS ORDERED: SODIUM CHLORIDE 1,000 ML IV STA (20:43)
[2023-03-28] MEDS ORDERED: ACETAMINOPHEN INJECTION 100 ML IVPB ONE (20:44)
[2023-03-28 21:45] VITALS: BP 120/69; PULSE 102; TEMP 98.3
== END 2023-03-29 00:40 | disposition home or self-care (01) ==
LOC: JER 15:53
PROC: 3E033NZ Introduction of Analgesics, Hypnotics, Sedatives into Peripheral Vein, Percutaneous Approach (ICD-10-PCS; principal; 2023-03-28)
PROC: 3E0337Z Introduction of Electrolytic and Water Balance Substance into Peripheral Vein, Percutaneous Approach (ICD-10-PCS; 2023-03-28)
DX: R22.43 Localized swelling, mass and lump, lower limb, bilateral (principal); R55 Syncope and collapse; U07.1 COVID-19
CPT/HCPCS: 0241U-QW; 36415; 71045-TC-FY; 80053; 81003; 83735; 83880; 84484; 85025; 85651; 86140; 87086; 93005; 93010; 93970-TC; 99285-25; J0131

== ENCOUNTER 2023-04-01 04:12 | Emergency (ER) | payer OTHER ==
[2023-04-01 04:20] VITALS: BP 110/68; PULSE 107; RESP 18; TEMP 98.6; BMI 28.4
[2023-04-01] MEDS ORDERED: ACETAMINOPHEN 500 MG TABLET (FP) PO ONE ×2 (05:11→05:24)
[2023-04-01] MEDS ORDERED: ACETAMINOPHEN 325 MG TABLET (FP) ONE (05:50)
== END 2023-04-01 08:49 | disposition home or self-care (01) ==
LOC: JER 04:12
DX: M25.562 Pain in left knee (principal); G89.29 Other chronic pain; R60.0 Localized edema
CPT/HCPCS: 73560-TC-LT-FY; 99283-25

== ENCOUNTER 2023-04-08 18:42 | Inpatient (IN) | payer OTHER ==
[2023-04-08 19:13] VITALS: BMI 25.1
[2023-04-08 22:03] LABS: BASO % 0.8 % (0-2.0); EOS % 0.5 % (0-4.5); HEMATOCRIT 35.6 % (35.4-49); HEMOGLOBIN 11.6 GM/dL (11.7-16.9); LYMPH % 0.6 % (8-40); MCH 26.9 pg (25.7-33.7); MCHC 32.4 g/dl (32.0-35.9); MEAN CELL VOLUME 82.9 fl (80-96); MEAN PLT VOLUME 6.6 fl (7.5-11.1); MONO % 5.6 % (3.8-10.2); NEUT % 92.5 % (42.8-82.8); PLATELET COUNT 232 10^3/uL (134-434); RDW 22.5 % (11.9-15.9); WHITE BLOOD COUNT 17.1 K/mm3 (4.0-10.0)
[2023-04-08 22:22] LABS: CHLORIDE 105 mmol/L (98-107); POTASSIUM 3.7 mmol/L (3.5-5.1); SODIUM 140 mmol/L (136-145)
[2023-04-08 22:24] LABS: ALBUMIN 3.3 g/dl (3.4-5.0); ANION GAP 6 mmol/L (4-13); BLOOD UREA NITROGEN 11.2 mg/dL (7-18); CALCIUM 8.9 mg/dL (8.5-10.1); CO2 29 mmol/L (21-32); GLUCOSE,RANDOM 173 mg/dL (74-106); MAGNESIUM 1.9 mg/dL (1.8-2.4)
[2023-04-08 22:27] LABS: CREATININE 0.9 mg/dL (0.55-1.3); PHOSPHOROUS 3.2 mg/dL (2.5-4.9); SGOT/AST 14 U/L (15-37); SGPT/ALT 38 U/L (13-61)
[2023-04-08 22:29] LABS: BILIRUBIN,TOTAL 0.4 mg/dL (0.2-1)
[2023-04-08 22:30] LABS: ALK PHOS 111 U/L (45-117)
[2023-04-08 22:34] LABS: ANISOCYTOSIS 3+; MACROCYTOSIS 0; OVALOCYTE 1+
[2023-04-08 23:25] LABS: PH,URINE 8.5 (5.0-8.0); URINE APPEARANCE CLEAR; URINE BILIRUBIN NEGATIVE (NEGATIVE); URINE COLOR YELLOW; URINE GLUCOSE (UA) NEGATIVE (NEGATIVE); URINE KETONE NEGATIVE (NEGATIVE); URINE LEUK ESTERASE NEGATIVE (NEGATIVE); URINE NITRITE NEGATIVE (NEGATIVE); URINE PROTEIN NEGATIVE (NEGATIVE); URINE UROBILINOGEN 0.2 mg/dL (0.2-1.0)
[2023-04-08 23:34] LABS: OPIATES, URI NEGATIVE (NEGATIVE); PHENCYCLIDINE,URINE NEGATIVE (NEGATIVE); URINE BARBITURATES NEGATIVE (NEGATIVE); URINE BENZODIAZEPINES NEGATIVE (NEGATIVE)
[2023-04-08 23:35] LABS: METHADONE, UR NEGATIVE (NEGATIVE)
[2023-04-08 23:36] LABS: COCAINE, UR NEGATIVE (NEGATIVE); URINE AMPHETAMINES NEGATIVE (NEGATIVE)
[2023-04-09 06:44] LABS: HEMATOCRIT 34.6 % (35.4-49); HEMOGLOBIN 11.2 GM/dL (11.7-16.9); MCH 27.1 pg (25.7-33.7); MCHC 32.5 g/dl (32.0-35.9); MEAN CELL VOLUME 83.4 fl (80-96); MEAN PLT VOLUME 7.3 fl (7.5-11.1); PLATELET COUNT 214 10^3/uL (134-434); RBC 4.15 M/mm3 (4.00-5.60); RDW 22.3 % (11.9-15.9); WHITE BLOOD COUNT 16.4 K/mm3 (4.0-10.0)
[2023-04-09 06:45] LABS: HEMATOCRIT 34.5 % (35.4-49); HEMOGLOBIN 11.2 GM/dL (11.7-16.9); MCHC 32.5 g/dl (32.0-35.9); MEAN CELL VOLUME 83.3 fl (80-96); MEAN PLT VOLUME 7.3 fl (7.5-11.1); PLATELET COUNT 209 10^3/uL (134-434); RBC 4.14 M/mm3 (4.00-5.60); RDW 22.7 % (11.9-15.9); WHITE BLOOD COUNT 16.6 K/mm3 (4.0-10.0)
[2023-04-09 07:00] LABS: POTASSIUM 3.8 mmol/L (3.5-5.1)
[2023-04-09 07:02] LABS: CALCIUM 8.1 mg/dL (8.5-10.1)
[2023-04-09 07:03] LABS: ALBUMIN 3.1 g/dl (3.4-5.0); BLOOD UREA NITROGEN 10.9 mg/dL (7-18); MAGNESIUM 1.7 mg/dL (1.8-2.4)
[2023-04-09 07:06] LABS: CREATININE 0.9 mg/dL (0.55-1.3); PHOSPHOROUS 3.6 mg/dL (2.5-4.9)
[2023-04-09 07:07] LABS: BILIRUBIN,TOTAL 0.4 mg/dL (0.2-1); TOT PROT 5.3 g/dl (6.4-8.2)
[2023-04-09 08:48] LABS: N-TERMINAL BNP 265.5 pg/ml (5-125)
[2023-04-09 08:58] LABS: ANISOCYTOSIS 0; MACROCYTOSIS 0
[2023-04-09 09:17] LABS: ANISOCYTOSIS 0; MACROCYTOSIS 0
[2023-04-09] MEDS ORDERED: ENOXAPARIN NA (PORCINE) 40 MG/0.4 ML DISP.SYRIN SQ ONE (09:27)
[2023-04-09] MEDS: INSULIN ASPART SLIDING SCALE (NOVOLOG) 1 VIAL SQ SCH (09:33)
[2023-04-09] MEDS: ENOXAPARIN NA (PORCINE) 40 MG/0.4 ML DISP.SYRIN SQ SCH (10:30)
[2023-04-09] MEDS: RAMIPRIL 2.5 MG CAPSULE PO SCH (10:30)
[2023-04-09] MEDS: BENZTROPINE MESYLATE 1 MG TABLET PO SCH (10:30)
[2023-04-09] MEDS: TOPIRAMATE 25 MG TABLET PO SCH (22:40)
[2023-04-09] MEDS: ROSUVASTATIN CA 10 MG TABLET PO SCH (22:40)
[2023-04-09] MEDS: traZODone HCL 100 MG TABLET (FP) PO SCH (22:41)
[2023-04-09] MEDS: OLANZapine 10 MG TABLET PO SCH (22:41)
[2023-04-10 09:02] LABS: HEMATOCRIT 35.3 % (35.4-49); HEMOGLOBIN 11.3 GM/dL (11.7-16.9); MCH 26.7 pg (25.7-33.7); MCHC 32.1 g/dl (32.0-35.9); MEAN PLT VOLUME 7.4 fl (7.5-11.1); PLATELET COUNT 194 10^3/uL (134-434); RBC 4.25 M/mm3 (4.00-5.60); RDW 22.2 % (11.9-15.9); WHITE BLOOD COUNT 13.9 K/mm3 (4.0-10.0)
[2023-04-10 09:20] LABS: POTASSIUM 3.7 mmol/L (3.5-5.1)
[2023-04-10 09:26] LABS: CALCIUM 8.7 mg/dL (8.5-10.1)
[2023-04-10 09:27] LABS: ALBUMIN 2.9 g/dl (3.4-5.0); BLOOD UREA NITROGEN 8.9 mg/dL (7-18)
[2023-04-10 09:30] LABS: CREATININE 0.8 mg/dL (0.55-1.3)
[2023-04-10 09:32] LABS: BILIRUBIN,TOTAL 0.4 mg/dL (0.2-1); TOT PROT 5.3 g/dl (6.4-8.2)
[2023-04-10] MEDS: LORazepam 1 MG TABLET PO PRN (10:02)
[2023-04-10 10:50] LABS: ANISOCYTOSIS 0; MACROCYTOSIS 0
[2023-04-10] MEDS ORDERED: INSULIN (NOVOLOG) ASPART 100 UNITS/ML 10ML VIAL ONE ×2 (12:21→21:57)
[2023-04-10] MEDS: RAMIPRIL 2.5 MG CAPSULE PO ONE (18:47)
[2023-04-11] MEDS: ACETAMINOPHEN 325 MG TABLET (FP) PO ONE (04:45)
[2023-04-11] MEDS: RAMIPRIL 5 MG CAPSULE PO SCH (09:11)
[2023-04-11 11:01] VITALS: BP 137/79; PULSE 96; RESP 20; TEMP 98.2
[2023-04-11] MEDS ORDERED: INSULIN (NOVOLOG) ASPART 100 UNITS/ML 10ML VIAL ONE (11:26)
[2023-04-11 13:20] LABS: HEMATOCRIT 36.7 % (35.4-49); HEMOGLOBIN 11.9 GM/dL (11.7-16.9); MCH 27.4 pg (25.7-33.7); MCHC 32.3 g/dl (32.0-35.9); MEAN CELL VOLUME 84.6 fl (80-96); MEAN PLT VOLUME 7.6 fl (7.5-11.1); PLATELET COUNT 181 10^3/uL (134-434); RBC 4.33 M/mm3 (4.00-5.60); RDW 22.4 % (11.9-15.9); WHITE BLOOD COUNT 7.3 K/mm3 (4.0-10.0)
[2023-04-11 13:32] LABS: POTASSIUM 3.7 mmol/L (3.5-5.1)
[2023-04-11 13:36] LABS: ALBUMIN 3.1 g/dl (3.4-5.0); BLOOD UREA NITROGEN 11.5 mg/dL (7-18); CALCIUM 8.2 mg/dL (8.5-10.1)
[2023-04-11 13:39] LABS: CREATININE 0.9 mg/dL (0.55-1.3)
[2023-04-11 13:41] LABS: BILIRUBIN,TOTAL 0.3 mg/dL (0.2-1); TOT PROT 5.5 g/dl (6.4-8.2)
[2023-04-11 14:47] LABS: ANISOCYTOSIS 2+; MACROCYTOSIS 0
== END 2023-04-11 12:47 | disposition home health service (06) | DRG 52 ==
LOC: JER 18:42 → JERBED 04-09 00:41 → J8W 04-09 10:38
PROVIDERS: ADMIT Internal Medicine; ATTEND Nurse Practitioner Acute Care
DX: G92.9 Unspecified toxic encephalopathy (principal); C85.90 Non-Hodgkin lymphoma, unspecified, unspecified site; F25.9 Schizoaffective disorder, unspecified; E11.9 Type 2 diabetes mellitus without complications; R41.82 Altered mental status, unspecified; T42.6X6A Underdosing of other antiepileptic and sedative-hypnotic drugs, initial encounter; Z91.128 Patient's intentional underdosing of medication regimen for other reason; X58.XXXA Exposure to other specified factors, initial encounter; Y93.9 Activity, unspecified; Y92.9 Unspecified place or not applicable
CPT/HCPCS: 0241U-QW; 36415; 70450-TC; 71045-TC-FY; 74175-TC; 80053; 80061; 80307; 81003; 82550; 82962; 83036; 83735; 83880; 84100; 84443; 85025; 87040; 87086; 93005; 93010; 93306-TC; 93970-TC; 97116-GP; 97161-GP; 99285-25; Q9967

== ENCOUNTER 2023-04-13 15:55 | Emergency (ER) | payer OTHER ==
[2023-04-13 16:48] VITALS: BP 109/54; PULSE 107; RESP 16; TEMP 98.3; BMI 28.1
[2023-04-13 18:26] LABS: HEMATOCRIT 34.8 % (35.4-49); HEMOGLOBIN 11.5 GM/dL (11.7-16.9); MCH 27.6 pg (25.7-33.7); MEAN CELL VOLUME 83.6 fl (80-96); MEAN PLT VOLUME 7.6 fl (7.5-11.1); PLATELET COUNT 195 10^3/uL (134-434); RBC 4.16 M/mm3 (4.00-5.60); RDW 22.5 % (11.9-15.9)
[2023-04-13 18:45] LABS: POTASSIUM 4.1 mmol/L (3.5-5.1)
[2023-04-13 18:46] LABS: CALCIUM 8.4 mg/dL (8.5-10.1)
[2023-04-13 18:47] LABS: ALBUMIN 3.2 g/dl (3.4-5.0); BLOOD UREA NITROGEN 12.2 mg/dL (7-18); MAGNESIUM 1.9 mg/dL (1.8-2.4)
[2023-04-13 18:52] LABS: BILIRUBIN,TOTAL 0.2 mg/dL (0.2-1); TOT PROT 5.7 g/dl (6.4-8.2)
[2023-04-13 18:55] LABS: N-TERMINAL BNP 76.9 pg/ml (5-125)
[2023-04-13 18:56] LABS: URINE APPEARANCE CLEAR; URINE BILIRUBIN NEGATIVE (NEGATIVE); URINE COLOR YELLOW; URINE GLUCOSE (UA) 3+ (NEGATIVE); URINE KETONE NEGATIVE (NEGATIVE); URINE LEUK ESTERASE NEGATIVE (NEGATIVE); URINE NITRITE NEGATIVE (NEGATIVE); URINE PROTEIN NEGATIVE (NEGATIVE); URINE UROBILINOGEN 0.2 mg/dL (0.2-1.0)
[2023-04-13 18:57] LABS: ADD RBC MORPHOLOGY YES
[2023-04-13 20:42] LABS: ANISOCYTOSIS 3+; MACROCYTOSIS 1+; OVALOCYTE 1+
== END 2023-04-13 23:11 | disposition left against medical advice (07) ==
LOC: JER 15:55
DX: R55 Syncope and collapse (principal); R42 Dizziness and giddiness; Z20.822 Contact with and (suspected) exposure to COVID-19
CPT/HCPCS: 0241U-QW; 36415; 70450-TC; 71045-TC-FY; 80053; 81003; 83735; 83880; 84484; 85025; 87086; 93005; 93010; 99285-25

== ENCOUNTER 2023-04-15 18:36 | Observation (INO) | payer OTHER ==
[2023-04-15 21:08] LABS: POTASSIUM 4.3 mmol/L (3.5-5.1)
[2023-04-15] MEDS ORDERED: TOPIRAMATE 25 MG TABLET ONE (21:09)
[2023-04-15 21:11] LABS: ALBUMIN 3.7 g/dl (3.4-5.0); MAGNESIUM 2.1 mg/dL (1.8-2.4)
[2023-04-15] MEDS: TOPIRAMATE 25 MG TABLET PO ONE (21:13)
[2023-04-15 21:14] LABS: PHOSPHOROUS 4.2 mg/dL (2.5-4.9)
[2023-04-15 21:15] LABS: BILIRUBIN,TOTAL 0.3 mg/dL (0.2-1)
[2023-04-15 21:16] LABS: TOT PROT 6.3 g/dl (6.4-8.2)
[2023-04-15 21:24] LABS: HEMATOCRIT 40.5 % (35.4-49); HEMOGLOBIN 13.2 GM/dL (11.7-16.9); MCH 27.3 pg (25.7-33.7); MCHC 32.5 g/dl (32.0-35.9); MEAN CELL VOLUME 84.1 fl (80-96); MEAN PLT VOLUME 7.7 fl (7.5-11.1); PLATELET COUNT 225 10^3/uL (134-434); RBC 4.81 M/mm3 (4.00-5.60); RDW 22.3 % (11.9-15.9); WHITE BLOOD COUNT 13.4 K/mm3 (4.0-10.0)
[2023-04-15] MEDS: INSULIN (NOVOLOG) ASPART 100 UNITS/ML 10ML VIAL SQ ONE (21:36)
[2023-04-15] MEDS: SODIUM CHLORIDE 0.9% 500 ML INFUS.BAG IV ONE (21:37)
[2023-04-15 22:23] LABS: METHADONE, UR NEGATIVE (NEGATIVE); PHENCYCLIDINE,URINE NEGATIVE (NEGATIVE); URINE BARBITURATES NEGATIVE (NEGATIVE); URINE BENZODIAZEPINES NEGATIVE (NEGATIVE)
[2023-04-15 22:24] LABS: OPIATES, URI NEGATIVE (NEGATIVE)
[2023-04-15 22:25] LABS: COCAINE, UR NEGATIVE (NEGATIVE); URINE AMPHETAMINES NEGATIVE (NEGATIVE)
[2023-04-15 22:26] LABS: URINE APPEARANCE CLOUDY; URINE BILIRUBIN NEGATIVE (NEGATIVE); URINE COLOR YELLOW; URINE GLUCOSE (UA) 3+ (NEGATIVE); URINE KETONE NEGATIVE (NEGATIVE); URINE LEUK ESTERASE NEGATIVE (NEGATIVE); URINE NITRITE NEGATIVE (NEGATIVE); URINE PROTEIN NEGATIVE (NEGATIVE); URINE UROBILINOGEN 0.2 mg/dL (0.2-1.0)
[2023-04-15 22:40] LABS: ANISOCYTOSIS 0; MACROCYTOSIS 0; PLATELET ESTIMATE NORMAL
[2023-04-16] MEDS: INSULIN (LEVEMIR) 100 UNITS/ML UNITS SQ ONE (01:13)
[2023-04-16 03:27] VITALS: RESP 18
[2023-04-16] MEDS ORDERED: PATIENT'S OWN MEDICATION (NON-FORMULARY) (Ibuprofen [Ibuprofen] 800 MG Tablet) PO PRN (03:27)
[2023-04-16 05:55] VITALS: BMI 23.4
[2023-04-16] MEDS: REPAGLINIDE 1 MG TABLET PO SCH (06:40)
[2023-04-16 09:22] LABS: HEMATOCRIT 38.4 % (35.4-49); HEMOGLOBIN 13.2 GM/dL (11.7-16.9); MCH 28.5 pg (25.7-33.7); MCHC 34.2 g/dl (32.0-35.9); MEAN CELL VOLUME 83.3 fl (80-96); MEAN PLT VOLUME 7.6 fl (7.5-11.1); PLATELET COUNT 204 10^3/uL (134-434); RBC 4.61 M/mm3 (4.00-5.60); WHITE BLOOD COUNT 9.9 K/mm3 (4.0-10.0)
[2023-04-16] MEDS: ENOXAPARIN NA (PORCINE) 40 MG/0.4 ML DISP.SYRIN SQ SCH (09:22)
[2023-04-16] MEDS: TOPIRAMATE 25 MG TABLET PO SCH (09:22)
[2023-04-16] MEDS: BENZTROPINE MESYLATE 1 MG TABLET PO SCH (09:23)
[2023-04-16] MEDS: RAMIPRIL 2.5 MG CAPSULE PO SCH (09:23)
[2023-04-16 09:37] LABS: POTASSIUM 3.7 mmol/L (3.5-5.1)
[2023-04-16 09:47] LABS: ALBUMIN 3.3 g/dl (3.4-5.0); BLOOD UREA NITROGEN 13.3 mg/dL (7-18); CALCIUM 8.7 mg/dL (8.5-10.1); MAGNESIUM 2.2 mg/dL (1.8-2.4)
[2023-04-16 09:50] LABS: PHOSPHOROUS 4.3 mg/dL (2.5-4.9)
[2023-04-16 09:51] LABS: BILIRUBIN,TOTAL 0.7 mg/dL (0.2-1)
[2023-04-16 09:52] LABS: TOT PROT 5.9 g/dl (6.4-8.2)
[2023-04-16 12:20] LABS: ANISOCYTOSIS 2+; MACROCYTOSIS 0
[2023-04-16] MEDS: metFORMIN HCL 500 MG TABLET (FP) PO SCH (16:56)
[2023-04-16] MEDS: traZODone HCL 100 MG TABLET (FP) PO SCH (21:42)
[2023-04-16] MEDS: ROSUVASTATIN CA 10 MG TABLET PO SCH (21:42)
[2023-04-16] MEDS: OLANZapine 10 MG TABLET PO SCH (21:42)
[2023-04-16] MEDS: INSULIN (LEVEMIR) 100 UNITS/ML UNITS SQ SCH (21:43)
[2023-04-16] MEDS ORDERED: INSULIN (LEVEMIR) 100 UNITS/ML UNITS SQ SCH (22:00)
[2023-04-17] MEDS ORDERED: INSULIN ASPART SLIDING SCALE (NOVOLOG) 1 VIAL SQ ONE (10:48)
[2023-04-17] MEDS: amLODIPine BESYLATE 5 MG TABLET (FP) PO ONE (13:33)
[2023-04-17] MEDS ORDERED: LABETALOL HCL 5 MG/1 ML (100MG/20 ML VIAL) IVPUSH ONE (13:45)
[2023-04-17] MEDS: LABETALOL HCL 20 MG/4 ML VIAL IVPUSH ONE (13:46)
[2023-04-17] MEDS ORDERED: RAMIPRIL 2.5 MG CAPSULE PO SCH (13:46)
[2023-04-17] MEDS: INSULIN ASPART SLIDING SCALE (NOVOLOG) 1 VIAL SQ SCH (16:28)
[2023-04-17] MEDS: IBUPROFEN 400 MG TABLET (FP) PO PRN (22:04)
[2023-04-18] MEDS: RAMIPRIL 5 MG CAPSULE PO SCH (09:43)
[2023-04-18] MEDS: amLODIPine BESYLATE 5 MG TABLET (FP) PO SCH (09:43)
[2023-04-20 03:03] VITALS: BP 135/83; PULSE 114; TEMP 97.8
[2023-04-20] MEDS: LORazepam 1 MG TABLET PO PRN (10:04)
== END 2023-04-20 13:42 | disposition home or self-care (01) ==
LOC: JER 18:36 → UNDOADMOB 20:57 → JERBED 20:57 → INTOOBSV 23:26 → OBSVTOIN 23:26 → J6S 04-16 00:59 → JERBED 04-16 00:59 → J6S 04-16 13:14
PROVIDERS: ADMIT Internal Medicine; ATTEND Internal Medicine
PROC: 3E023GC Introduction of Other Therapeutic Substance into Muscle, Percutaneous Approach (ICD-10-PCS; principal; 2023-04-16)
PROC: 3E013VG Introduction of Insulin into Subcutaneous Tissue, Percutaneous Approach (ICD-10-PCS; 2023-04-16)
PROC: 3E0337Z Introduction of Electrolytic and Water Balance Substance into Peripheral Vein, Percutaneous Approach (ICD-10-PCS; 2023-04-16)
DX: F23 Brief psychotic disorder (principal); F25.9 Schizoaffective disorder, unspecified; E11.65 Type 2 diabetes mellitus with hyperglycemia; C83.10 Mantle cell lymphoma, unspecified site; R42 Dizziness and giddiness; Z90.49 Acquired absence of other specified parts of digestive tract
CPT/HCPCS: 36415; 71045-TC-FY; 72050-TC-FY; 80053; 80201; 80307; 81003; 82962; 83735; 84100; 84443; 85025; 87086; 93005; 93010; 96372; 99285-25; G0378

== ENCOUNTER 2023-05-25 02:59 | Emergency (ER) | payer OTHER ==
[2023-05-25 03:03] VITALS: BMI 27.3
[2023-05-25 03:53] LABS: HEMATOCRIT 32.8 % (35.4-49); HEMOGLOBIN 11.1 GM/dL (11.7-16.9); MCH 28.7 pg (25.7-33.7); MCHC 33.7 g/dl (32.0-35.9); MEAN CELL VOLUME 85.2 fl (80-96); MEAN PLT VOLUME 7.3 fl (7.5-11.1); PLATELET COUNT 253 10^3/uL (134-434); RBC 3.85 M/mm3 (4.00-5.60); RDW 14.8 % (11.9-15.9); WHITE BLOOD COUNT 10.4 K/mm3 (4.0-10.0)
[2023-05-25] MEDS ORDERED: ACETAMINOPHEN 500 MG TABLET (FP) ONE (03:58)
[2023-05-25] MEDS: ACETAMINOPHEN 500 MG TABLET (FP) PO ONE (04:00)
[2023-05-25 04:05] LABS: INR 1.06 (0.83-1.09); PROTHROMBIN TIME (PATIENT) 12.3 SEC (9.7-13.0)
[2023-05-25 04:47] LABS: CHLORIDE 103 mmol/L (98-107); POTASSIUM 4.2 mmol/L (3.5-5.1); SODIUM 134 mmol/L (136-145)
[2023-05-25 04:49] LABS: CALCIUM 8.6 mg/dL (8.5-10.1)
[2023-05-25 04:50] LABS: ALBUMIN 2.9 g/dl (3.4-5.0); ANION GAP 6 mmol/L (4-13); BLOOD UREA NITROGEN 20.6 mg/dL (7-18); CO2 25 mmol/L (21-32)
[2023-05-25 04:53] LABS: SGOT/AST 12 U/L (15-37); SGPT/ALT 13 U/L (13-61)
[2023-05-25 04:55] LABS: BILIRUBIN,TOTAL 0.3 mg/dL (0.2-1); TOT PROT 5.4 g/dl (6.4-8.2)
[2023-05-25 04:56] LABS: ALK PHOS 134 U/L (45-117)
[2023-05-25 05:46] LABS: GLUCOSE,RANDOM 424 mg/dL (74-106)
[2023-05-25] MEDS: SODIUM CHLORIDE 0.9% 500 ML INFUS.BAG IV ONE (06:36)
[2023-05-25] MEDS ORDERED: INSULIN (NOVOLOG) ASPART 100 UNITS/ML 10ML VIAL ONE (06:38)
[2023-05-25] MEDS: INSULIN REGULAR HUMAN 100 UNITS/ML *VIAL SQ ONE (06:42)
[2023-05-25 06:46] LABS: ANISOCYTOSIS 2+; MACROCYTOSIS 0
[2023-05-25 09:10] VITALS: BP 144/86; PULSE 106; RESP 20; TEMP 98.5
== END 2023-05-25 10:26 | disposition home or self-care (01) ==
LOC: JER 02:59
PROC: 3E013VG Introduction of Insulin into Subcutaneous Tissue, Percutaneous Approach (ICD-10-PCS; principal; 2023-05-25)
DX: M79.604 Pain in right leg (principal); M79.605 Pain in left leg; R22.43 Localized swelling, mass and lump, lower limb, bilateral
CPT/HCPCS: 36415; 71045-TC-FY; 80053; 82550; 82962; 83880; 84484; 85025; 85610; 93005; 93010; 93970-TC; 99285-25

== ENCOUNTER 2023-07-04 13:13 | Emergency (ER) | payer OTHER ==
[2023-07-04 13:27] VITALS: RESP 18; TEMP 98; BMI 25.0
[2023-07-04 16:22] VITALS: BP 142/72; PULSE 76
== END 2023-07-04 16:52 | disposition home or self-care (01) ==
LOC: JER 13:13
DX: S80.911A Unspecified superficial injury of right knee, initial encounter (principal); S80.912A Unspecified superficial injury of left knee, initial encounter; S09.90XA Unspecified injury of head, initial encounter; E04.1 Nontoxic single thyroid nodule; W19.XXXA Unspecified fall, initial encounter
CPT/HCPCS: 70450-TC; 72125-TC; 73562-TC-LT-FY; 99284-25

== ENCOUNTER 2023-07-07 08:56 | Emergency (ER) | payer OTHER ==
[2023-07-07 09:55] VITALS: BP 115/60; PULSE 95; RESP 17; TEMP 98.7; BMI 25.5
[2023-07-07 10:20] LABS: HEMATOCRIT 34.1 % (35.4-49); HEMOGLOBIN 11.5 GM/dL (11.7-16.9); MCH 28.3 pg (25.7-33.7); MCHC 33.8 g/dl (32.0-35.9); MEAN CELL VOLUME 83.9 fl (80-96); MEAN PLT VOLUME 6.8 fl (7.5-11.1); PLATELET COUNT 271 10^3/uL (134-434); RBC 4.07 M/mm3 (4.00-5.60); WHITE BLOOD COUNT 5.5 K/mm3 (4.0-10.0)
[2023-07-07 10:40] LABS: ALBUMIN 3.2 g/dl (3.4-5.0); BLOOD UREA NITROGEN 15.6 mg/dL (7-18); CALCIUM 8.2 mg/dL (8.5-10.1); MAGNESIUM 1.9 mg/dL (1.8-2.4)
[2023-07-07 10:43] LABS: CREATININE 1.2 mg/dL (0.55-1.3)
[2023-07-07 10:45] LABS: BILIRUBIN,TOTAL 0.3 mg/dL (0.2-1); TOT PROT 5.7 g/dl (6.4-8.2)
[2023-07-07 10:48] LABS: URINE APPEARANCE CLEAR; URINE BILIRUBIN NEGATIVE (NEGATIVE); URINE COLOR YELLOW; URINE GLUCOSE (UA) 2+ (NEGATIVE); URINE KETONE NEGATIVE (NEGATIVE); URINE LEUK ESTERASE NEGATIVE (NEGATIVE); URINE NITRITE NEGATIVE (NEGATIVE); URINE PROTEIN NEGATIVE (NEGATIVE); URINE UROBILINOGEN 0.2 mg/dL (0.2-1.0)
[2023-07-07] MEDS ORDERED: SODIUM CHLORIDE 0.9% 500 ML INFUS.BAG IV ONE (11:54)
== END 2023-07-07 12:54 | disposition left against medical advice (07) ==
LOC: JER 08:56 → JERBED 12:08 → UNDOADMOB 12:08
DX: U07.1 COVID-19 (principal); R29.6 Repeated falls
CPT/HCPCS: 0241U-QW; 36415; 71045-TC-FY; 80053; 81003; 82550; 82962; 83735; 84484; 85025; 87086; 93005; 93010; 99285-25

== ENCOUNTER 2023-09-17 09:59 | Emergency (ER) | payer OTHER ==
[2023-09-17 10:05] VITALS: BMI 28.1
[2023-09-17] MEDS ORDERED: ACETAMINOPHEN INJECTION 100 ML IVPB ONE (11:16)
[2023-09-17] MEDS: ACETAMINOPHEN 1000 MG/100 ML BAG IVPB ONE (11:30)
[2023-09-17] MEDS: SODIUM CHLORIDE 0.9% 500 ML INFUS.BAG IV ONE ×2 (11:30→13:50)
[2023-09-17 12:17] LABS: HEMATOCRIT 31.3 % (35.4-49); HEMOGLOBIN 10.3 GM/dL (11.7-16.9); MCH 26.2 pg (25.7-33.7); MEAN CELL VOLUME 79.4 fl (80-96); MEAN PLT VOLUME 7.2 fl (7.5-11.1); PLATELET COUNT 314 10^3/uL (134-434); RBC 3.95 M/mm3 (4.00-5.60); RDW 15.5 % (11.9-15.9); WHITE BLOOD COUNT 9.1 K/mm3 (4.0-10.0)
[2023-09-17 12:21] LABS: CHLORIDE 98 mmol/L (98-107); SODIUM 133 mmol/L (136-145)
[2023-09-17 12:23] LABS: CALCIUM 8.2 mg/dL (8.5-10.1)
[2023-09-17 12:24] LABS: ANION GAP 5 mmol/L (4-13); BLOOD UREA NITROGEN 13.3 mg/dL (7-18); CO2 30 mmol/L (21-32); GLUCOSE,RANDOM 262 mg/dL (74-106)
[2023-09-17 12:27] LABS: CREATININE 1.1 mg/dL (0.55-1.3); SGOT/AST 6 U/L (15-37); SGPT/ALT 15 U/L (13-61)
[2023-09-17 12:28] LABS: BILIRUBIN,TOTAL 0.5 mg/dL (0.2-1); TOT PROT 5.6 g/dl (6.4-8.2)
[2023-09-17 12:30] LABS: ALK PHOS 80 U/L (45-117)
[2023-09-17 13:28] VITALS: BP 147/77; PULSE 100; RESP 21; TEMP 98.4
[2023-09-17 13:29] LABS: ANISOCYTOSIS 0; MACROCYTOSIS 0; OVALOCYTE 1+
[2023-09-17] MEDS: BENZTROPINE MESYLATE 1 MG TABLET PO ONE (13:50)
== END 2023-09-17 15:02 | disposition home or self-care (01) ==
LOC: JER 09:59
PROC: 3E033NZ Introduction of Analgesics, Hypnotics, Sedatives into Peripheral Vein, Percutaneous Approach (ICD-10-PCS; principal; 2023-09-17)
DX: R53.1 Weakness (principal); Z20.822 Contact with and (suspected) exposure to COVID-19
CPT/HCPCS: 0241U-QW; 36415; 71045-TC-FY; 80053; 80307; 82962; 85025; 93005; 93010; 99285-25; J0131

== ENCOUNTER 2023-09-18 08:19 | Emergency (ER) | payer OTHER ==
[2023-09-18 09:03] VITALS: BP 155/67; PULSE 118; RESP 20; TEMP 99.8; BMI 25.1
[2023-09-18] MEDS: SODIUM CHLORIDE 0.9% 500 ML INFUS.BAG IV ONE (09:52)
[2023-09-18] MEDS: BENZTROPINE MESYLATE 1 MG TABLET PO ONE (10:15)
[2023-09-18] MEDS: OLANZapine 10 MG TABLET PO ONE (10:15)
[2023-09-18 10:27] LABS: HEMATOCRIT 32.3 % (35.4-49); HEMOGLOBIN 10.6 GM/dL (11.7-16.9); MCH 26.4 pg (25.7-33.7); MCHC 32.8 g/dl (32.0-35.9); MEAN CELL VOLUME 80.5 fl (80-96); MEAN PLT VOLUME 7.1 fl (7.5-11.1); PLATELET COUNT 341 10^3/uL (134-434); RBC 4.01 M/mm3 (4.00-5.60); RDW 15.1 % (11.9-15.9); WHITE BLOOD COUNT 8.7 K/mm3 (4.0-10.0)
[2023-09-18 10:37] LABS: POTASSIUM 4.2 mmol/L (3.5-5.1)
[2023-09-18 10:39] LABS: BLOOD UREA NITROGEN 12.9 mg/dL (7-18); CALCIUM 8.5 mg/dL (8.5-10.1)
[2023-09-18 10:40] LABS: ALBUMIN 3.2 g/dl (3.4-5.0)
[2023-09-18 10:42] LABS: CREATININE 0.9 mg/dL (0.55-1.3)
[2023-09-18 10:44] LABS: BILIRUBIN,TOTAL 0.4 mg/dL (0.2-1)
[2023-09-18 12:22] LABS: ANISOCYTOSIS 0; HELMET CELLS 0; HOWELL-JOLLY BODIES 0; MACROCYTOSIS 0; OVALOCYTE 0; ROULEAU 0; SICKELED CELLS 0; TARGET CELLS 0; TEAR DROP CELLS 0; TOXIC GRANULATION 0
== END 2023-09-18 12:10 | disposition home or self-care (01) ==
LOC: JER 08:19
DX: R00.0 Tachycardia, unspecified (principal); R60.0 Localized edema; R25.1 Tremor, unspecified; Z91.148 Patient's other noncompliance with medication regimen for other reason
CPT/HCPCS: 36415; 80053; 82962; 85025; 99284-25